=== PATIENT | female | born 1955 | race Caucasian/White ===

== ENCOUNTER → 2018-08-09 | Outpatient (CLI) | payer OTHER | END | disposition home or self-care (01) | LOC: SURG 09:32 | PROVIDERS: ATTEND Anesthesiology Pain Medicine | DX: M17.12 Unilateral primary osteoarthritis, left knee (principal); M19.90 Unspecified osteoarthritis, unspecified site; G89.4 Chronic pain syndrome; E78.5 Hyperlipidemia, unspecified; E11.9 Type 2 diabetes mellitus without complications; R51 Headache; E03.9 Hypothyroidism, unspecified; E31.20 Multiple endocrine neoplasia [MEN] syndrome, unspecified | CPT/HCPCS: 99214 ==